=== PATIENT | male | born 1985 | race Caucasian/White ===

== ENCOUNTER 2019-05-30 08:23 | Inpatient (IN) | payer SELFPAY ==
[2019-05-30 09:16] VITALS: BMI 27.7
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
[2019-05-30] MEDS ORDERED: MELATONIN 5 MG TABLETS PO PRN (09:52)
[2019-05-30] MEDS ORDERED: MAGNESIUM CITRATE 300 ML BOTTLE PO PRN (09:52)
[2019-05-30] MEDS ORDERED: METHOCARBAMOL 500 MG TABLET PO PRN (09:52)
[2019-05-30] MEDS ORDERED: cloNIDine HCL 0.1 MG TABLET PO PRN (09:52)
[2019-05-30] MEDS ORDERED: ACETAMINOPHEN 325 MG TABLET (FP) PO PRN ×2 (09:52)
[2019-05-30] MEDS ORDERED: MAG HYDROX/AL HYDROX/SIMETH 30 ML UNIT-DOSE CUP PO PRN (09:52)
[2019-05-30] MEDS ORDERED: IBUPROFEN 400 MG TABLET (FP) PO PRN (09:52)
[2019-05-30] MEDS ORDERED: MENTHOL/PHENOL 1 EACH UD MM PRN (09:52)
[2019-05-30] MEDS ORDERED: BISMUTH SUBSALICYLATE 262 MG/15 ML BTL PO PRN (09:52)
[2019-05-30] MEDS ORDERED: MAGNESIUM HYDROX 2400MG/30ML ORAL SUSPENSION 30 ML CUP PO PRN (09:52)
[2019-05-30] MEDS ORDERED: hydrOXYzine PAMOATE 25 MG CAPSULE (FP) PO PRN (09:52)
[2019-05-30] MEDS ORDERED: METHADONE HCL 10 MG TABLET (FOR DETOX USE ONLY) PO ONE (10:30)
[2019-05-30] MEDS: PRENATAL VITAMINS W/ FOLIC ACID TABLET (FP) PO SCH (11:04)
[2019-05-30] MEDS: LORazepam 2 MG TABLET PO SCH ×3 (11:05→22:12)
[2019-05-30] MEDS: NICOTINE 14 MG/24 HOURS TOPICAL PATCH TD SCH (11:06)
[2019-05-30 15:09] LABS: HEMATOCRIT 37.2 % (35.4-49); HEMOGLOBIN 12.2 GM/dL (11.7-16.9); MCH 29.2 pg (25.7-33.7); MCHC 32.9 g/dl (32.0-35.9); MEAN CELL VOLUME 88.8 fl (80-96); MEAN PLT VOLUME 7.7 fl (7.5-11.1); PLATELET COUNT 350 K/MM3 (134-434); RBC 4.18 M/mm3 (4.00-5.60); RDW 13.8 % (11.9-15.9); WHITE BLOOD COUNT 6.8 K/mm3 (4.0-10.0)
[2019-05-30 15:21] LABS: ALBUMIN 4.1 g/dl (3.4-5.0); BILIRUBIN,TOTAL 0.2 mg/dL (0.2-1); BLOOD UREA NITROGEN 17.6 mg/dL (7-18); CALCIUM 9.3 mg/dL (8.5-10.1); POTASSIUM 4.7 mmol/L (3.5-5.1)
--- NOTE | 2019-05-30 16:29 | CONSULT ---
[facility] Psychiatric Consult - Data Date of interview: 05/30/19 Admission source: [facility] Identifying data: First admission to [facility] for this 33 y/o male from [place] descent, self-referred for detoxification (LAQUITA isssues : heroin, cocaine, nicotine). Interviewed at [address] [place] [address]. Patient is single, no dependents, domiciled (lives with father), unemployed and supported on his personal savings (employer went bankrupt). Substance Abuse History: Discussed with patient. Details in current [facility] report as follows : Smoking history: Current every day smoker. Have you smoked in the past 12 months: Yes. Aproximately how many cigarettes per day: 10. Alcohol/ Substance Use. Hx Alcohol Use: Yes (6-12 pack beers daily). Smoking history: Current every day smoker. Have you smoked in the past 12 months: Yes. Aproximately how many cigarettes per day: 12. Hx Chewing Tobacco Use: No. Initiated information on smoking cessation: Yes. 'Breaking Loose' booklet given : 05/30/19. - Substance & Tx. History. Hx Alcohol Use: Yes (6-12 pack of beer) . Hx Substance Use: Yes. Substance Use Type: Alcohol, Cocaine, Heroin, Opiates. Hx Substance Use Treatment: Yes (prior rehab). - Substances abused. Other. Other (specify): Fentanyl. Substance route: Injection. Frequency: Daily. Amount used: 2 grams. Age of first use: 33. Date of last use: . Cocaine. Substance route: Injection. Frequency: 3-6 times per week. Amount used: half to 1 gram. Age of first use: 15. Date of last use: . Alprazolam (Xanax). Substance route: Oral. Frequency: 1-2 times per week. Amount used: 4 to 6 mg. Age of first use: 15. Date of last use: . Number of Drinks Daily: 12. History of Substance Use: reports: Cocaine, Heroin. Date of Last Use: 05/29/19 Medical History: Patient endorses good general health. Psychiatric History: Patient denies history of psychiatric hospitalizations, OPD care of suicide attempts. Physical/Sexual Abuse/Trauma History: Patient denies. Additional Comment: Urine drug screen results: BRITTANEY-Cocaine, FEN-Fentanyl, MOP- Opiates. Noted. Mental Status Exam - Mental Status Exam Alert and Oriented to: Time, Place, Person Cognitive Function: Good Patient Appearance: Well Groomed (tall stature) Mood: Hopeful, Euthymic Affect: Appropriate, Normal Range Patient Behavior: Fatigued, Appropriate, Cooperative Speech Pattern: Clear Voice Loudness: Normal Thought Process: Intact, Goal Oriented Thought Disorder: Not Present Hallucinations: Denies Suicidal Ideation: Denies Homicidal Ideation: Denies Insight/Judgement: Poor Sleep: Poorly, Difficulty falling asleep Appetite: Good Muscle strength/Tone: Normal Gait/Station: Normal Psychiatric Findings - Problem List ([place] 1, 2,3) (1) Alcohol dependence with withdrawal Current Visit: Yes Status: Acute (2) Opioid dependence with withdrawal Current Visit: Yes Status: Acute (3) Cocaine use disorder Current Visit: Yes Status: Chronic (4) Nicotine dependence Current Visit: Yes Status: Chronic (5) Insomnia Current Visit: Yes Status: Chronic - Initial Treatment Plan Initial Treatment Plan: Psychoeducation. Sleep hygiene. Detoxification. AA/NA meetings. Support. MAT services : discussed with patient. Insomnia is addressed with suvorexant 10 mg po hs prn. Side effects/benefits discussed in session. Patient gave verbal consent to Observation.
[2019-05-30] MEDS: SUVOREXANT 10 MG TABLET PO PRN (22:12)
[2019-05-30] MEDS: THIAMINE HCL 100 MG TABLET (FP) PO SCH (22:12)
[2019-05-31] MEDS: LORazepam 2 MG TABLET PO SCH ×4 (05:49→22:32)
[2019-05-31] MEDS ORDERED: METHADONE HCL 5 MG TABLET (FOR DETOX USE ONLY) ONE (08:29)
[2019-05-31] MEDS ORDERED: METHADONE HCL 10 MG TABLET (FOR DETOX USE ONLY) ONE (08:29)
[2019-05-31] MEDS ORDERED: METHADONE (DETOX) 20 MG, METHADONE (DETOX) 5 MG PO ONE (10:00)
[2019-05-31] MEDS: NICOTINE 14 MG/24 HOURS TOPICAL PATCH TD SCH (10:11)
[2019-05-31] MEDS: PRENATAL VITAMINS W/ FOLIC ACID TABLET (FP) PO SCH (10:11)
--- NOTE | 2019-05-31 10:59 | PN ---
S CIWA - CIWA Score Nausea/Vomitin-Mild Nausea/No Vomiting Muscle Tremors: 2 Anxiety: 4-Mod. Anxious/Guarded Agitation: 2 Paroxysmal Sweats: 2 Orientation: 0-Oriented Tacttile Disturbances: 1-Very Mild Itch/Numbness Auditory Disturbances: 0-None Visual Disturbances: 0-None Headache: 0-None Present CIWA-Ar Total Score: 12 BHS COWS - Scale Resting Pulse: 1= [place] 81-100 Sweatin= Chills/Flushing Restless Observation: 0= Sits Still Pupil Size: 1= Pupils >than Normal Bone or Joint Aches: 1= Mild Discomfort Runny Nose/ Eye Tearin= None GI Upset > 30mins: 2= Nausea/Diarrhea Tremor Observation of Outstretched Hands: 0= None Yawning Observation: 2= >3x During Session Anxiety or Irritability: 1=Feels Anxious/Irritable Goose Flesh Skin: 3=Piloerection COWS Score: 12 S Progress Note (SOAP) Subjective: 33 years old male admitted on 05/30/19 for benzo and opiate withdrawal sx management treated with ativan and methadone detox regimen feeling tired prefers to stay in bed limited conversation with staff Objective: 05/31/19 10:58 Vital Signs Temperature 97.7 F 05/31/19 09:10 Pulse Rate 82 05/31/19 09:10 Respiratory Rate 18 05/31/19 09:10 Blood Pressure 126/73 05/31/19 09:10 O2 Sat by Pulse Oximetry (%) Laboratory Last Values WBC 6.8 K/mm3 (4.0-10.0) 05/30/19 10:10 RBC 4.18 M/mm3 (4.00-5.60) 05/30/19 10:10 Hgb 12.2 GM/dL (11.7-16.9) 05/30/19 10:10 Hct 37.2 % (35.4-49) 05/30/19 10:10 MCV 88.8 fl (80-96) 05/30/19 10:10 MCH 29.2 pg (25.7-33.7) 05/30/19 10:10 MCHC 32.9 g/dl (32.0-35.9) 05/30/19 10:10 RDW 13.8 % (11.9-15.9) 05/30/19 10:10 Plt Count 350 K/MM3 (134-434) 05/30/19 10:10 MPV 7.7 fl (7.5-11.1) 05/30/19 10:10 Sodium 136 mmol/L (136-145) 05/30/19 10:10 Potassium 4.7 mmol/L (3.5-5.1) 05/30/19 10:10 Chloride 103 mmol/L (98-107) 05/30/19 10:10 Carbon Dioxide 32 mmol/L (21-32) 05/30/19 10:10 Anion Gap 1 MMOL/L (8-16) L 05/30/19 10:10 BUN 17.6 mg/dL (7-18) 05/30/19 10:10 Creatinine 1.0 mg/dL (0.55-1.3) 05/30/19 10:10 Est GFR (CKD-EPI)AfAm 114.11 05/30/19 10:10 Est GFR (CKD-EPI)NonAf 98.45 05/30/19 10:10 Random Glucose 94 mg/dL (74-106) 05/30/19 10:10 Calcium 9.3 mg/dL (8.5-10.1) 05/30/19 10:10 Total Bilirubin 0.2 mg/dL (0.2-1) 05/30/19 10:10 AST 11 U/L (15-37) L 05/30/19 10:10 ALT 20 U/L (13-61) 05/30/19 10:10 Alkaline Phosphatase 88 U/L (45-117) 05/30/19 10:10 Total Protein 8.0 g/dl (6.4-8.2) 05/30/19 10:10 Albumin 4.1 g/dl (3.4-5.0) 05/30/19 10:10 HIV 1&2 Antibody Screen Cancelled 05/30/19 10:10 HIV P24 Antigen Cancelled 05/30/19 10:10 lab noted Assessment: 05/31/19 10:59 benzo and opiate withdrawal sx Plan: continue ativan and methadone detox regimen
[2019-05-31] MEDS: LORazepam 1 MG TABLET PO PRN (12:37)
[2019-05-31] MEDS: SUVOREXANT 10 MG TABLET PO PRN (22:32)
[2019-05-31] MEDS: THIAMINE HCL 100 MG TABLET (FP) PO SCH (22:32)
[2019-06-01] MEDS: LORazepam 1 MG TABLET PO SCH ×2 (05:28→10:14)
[2019-06-01] MEDS ORDERED: METHADONE HCL 10 MG TABLET (FOR DETOX USE ONLY) PO ONE (10:00)
[2019-06-01] MEDS: PRENATAL VITAMINS W/ FOLIC ACID TABLET (FP) PO SCH (10:14)
[2019-06-01] MEDS: NICOTINE 14 MG/24 HOURS TOPICAL PATCH TD SCH (10:14)
[2019-06-01 12:45] VITALS: BP 124/78; PULSE 96; TEMP 98.6
[2019-06-01] MEDS: LORazepam 1 MG TABLET PO PRN (13:35)
--- NOTE | 2019-06-01 15:18 | PN ---
S CIWA - CIWA Score Nausea/Vomitin Muscle Tremors: 2 Anxiety: 1-Mildly Anxious Agitation: 1-Slight > Activity Paroxysmal Sweats: 3 Orientation: 0-Oriented Tacttile Disturbances: 2-Mild Itch/Numbness/Burn Auditory Disturbances: 0-None Visual Disturbances: 0-None Headache: 0-None Present CIWA-Ar Total Score: 11 BHS COWS - Scale Resting Pulse: 2= DC 101-120 Sweatin=Flushed/Facial Moisture Restless Observation: 1= Difficult to Sit Still Pupil Size: 1= Pupils >than Normal Bone or Joint Aches: 2= Severe Diffuse Aches Runny Nose/ Eye Tearin= Nasal Congestion GI Upset > 30mins: 2= Nausea/Diarrhea Tremor Observation of Outstretched Hands: 1= Tremor [place], Not Seen Yawning Observation: 0= None Anxiety or Irritability: 1=Feels Anxious/Irritable Goose Flesh Skin: 0=Smooth Skin COWS Score: 13 BHS Progress Note (SOAP) Subjective: interrupted sleep, sweats, shakes , nausea, vomiting , bodyaches Objective: 06/01/19 15:15 Vital Signs Temperature 98.6 F 06/01/19 12:44 Pulse Rate 96 H 06/01/19 12:44 Respiratory Rate 18 06/01/19 12:44 Blood Pressure 124/78 06/01/19 12:44 O2 Sat by Pulse Oximetry (%) Laboratory Tests 05/30/19 05/30/19 05/30/19 10:10 10:10 10:10 WBC 6.8 RBC 4.18 Hgb 12.2 Hct 37.2 MCV 88.8 MCH 29.2 MCHC 32.9 RDW 13.8 Plt Count 350 MPV 7.7 Sodium 136 Potassium 4.7 Chloride 103 Carbon Dioxide 32 Anion Gap 1 L BUN 17.6 Creatinine 1.0 Est GFR (CKD-EPI)AfAm 114.11 Est GFR (CKD-EPI)NonAf 98.45 Random Glucose 94 Calcium 9.3 Total Bilirubin 0.2 AST 11 L ALT 20 Alkaline Phosphatase 88 Total Protein 8.0 Albumin 4.1 RPR Titer Nonreactive HIV 1&2 Ag/Ab, 4th Gen HIV 1&2 Antibody Screen HIV P24 Antigen 05/30/19 05/30/19 10:10 10:10 WBC RBC Hgb Hct MCV MCH MCHC RDW Plt Count MPV Sodium Potassium Chloride Carbon Dioxide Anion Gap BUN Creatinine Est GFR (CKD-EPI)AfAm Est GFR (CKD-EPI)NonAf Random Glucose Calcium Total Bilirubin AST ALT Alkaline Phosphatase Total Protein Albumin RPR Titer HIV 1&2 Ag/Ab, 4th Gen Non reactive HIV 1&2 Antibody Screen Cancelled HIV P24 Antigen Cancelled pt aox3 lying in bed appeating uncomfortable Assessment: 06/01/19 15:16 withdrawal sx's Plan: cont. detox increase fluids motrin prn
[2019-06-02] MEDS ORDERED: LORazepam 0.5 MG TABLET PO PRN
--- NOTE | 2019-06-02 01:15 | DS ---
[facility] Detox Discharge Summary Admission Date: 05/30/19 Discharge Date: 06/01/19 - History Present History: Alcohol Dependence, Cocaine Dependence, Opioid Dependence - Physical Exam Results Vital Signs: Vital Signs Temperature 98.6 F 06/01/19 12:44 Pulse Rate 96 H 06/01/19 12:44 Respiratory Rate 18 06/01/19 12:44 Blood Pressure 124/78 06/01/19 12:44 O2 Sat by Pulse Oximetry (%) Pertinent Admission Physical Exam Findings: ADMITTED W/ ALCOHOL AND OPIOID WITHDRAWAL SEEKING DETOX. Laboratory Last Values WBC 6.8 K/mm3 (4.0-10.0) 05/30/19 10:10 RBC 4.18 M/mm3 (4.00-5.60) 05/30/19 10:10 Hgb 12.2 GM/dL (11.7-16.9) 05/30/19 10:10 Hct 37.2 % (35.4-49) 05/30/19 10:10 MCV 88.8 fl (80-96) 05/30/19 10:10 MCH 29.2 pg (25.7-33.7) 05/30/19 10:10 MCHC 32.9 g/dl (32.0-35.9) 05/30/19 10:10 RDW 13.8 % (11.9-15.9) 05/30/19 10:10 Plt Count 350 K/MM3 (134-434) 05/30/19 10:10 MPV 7.7 fl (7.5-11.1) 05/30/19 10:10 Sodium 136 mmol/L (136-145) 05/30/19 10:10 Potassium 4.7 mmol/L (3.5-5.1) 05/30/19 10:10 Chloride 103 mmol/L (98-107) 05/30/19 10:10 Carbon Dioxide 32 mmol/L (21-32) 05/30/19 10:10 Anion Gap 1 MMOL/L (8-16) L 05/30/19 10:10 BUN 17.6 mg/dL (7-18) 05/30/19 10:10 Creatinine 1.0 mg/dL (0.55-1.3) 05/30/19 10:10 Est GFR (CKD-EPI)AfAm 114.11 05/30/19 10:10 Est GFR (CKD-EPI)NonAf 98.45 05/30/19 10:10 Random Glucose 94 mg/dL (74-106) 05/30/19 10:10 Calcium 9.3 mg/dL (8.5-10.1) 05/30/19 10:10 Total Bilirubin 0.2 mg/dL (0.2-1) 05/30/19 10:10 AST 11 U/L (15-37) L 05/30/19 10:10 ALT 20 U/L (13-61) 05/30/19 10:10 Alkaline Phosphatase 88 U/L (45-117) 05/30/19 10:10 Total Protein 8.0 g/dl (6.4-8.2) 05/30/19 10:10 Albumin 4.1 g/dl (3.4-5.0) 05/30/19 10:10 RPR Titer Nonreactive (NONREACTIVE) 05/30/19 10:10 HIV 1&2 Ag/Ab, 4th Gen Non reactive (Non Reactive) 05/30/19 10:10 HIV 1&2 Antibody Screen Cancelled 05/30/19 10:10 HIV P24 Antigen Cancelled 05/30/19 10:10 LABS REVIEWED - Treatment Hospital Course: Detox Protocol Followed (DID NOT COMPLETE DISCHARGE), Discharged Condition Good (PATIENT LEFT W/O SEEING PROVIDER) - Medication Discharge Medications: Ambulatory Orders Naloxone HCl [Narcan] 4 mg NS ASDIR PRN #1 spray 05/31/19 - Diagnosis (1) Alcohol dependence with withdrawal Status: Acute Qualifiers: Complication of substance-induced condition: uncomplicated Qualified Code(s ): F10.230 - Alcohol dependence with withdrawal, uncomplicated (2) Opioid dependence with withdrawal Status: Acute (3) Cocaine use disorder Status: Chronic (4) Insomnia Status: Chronic Qualifiers: Insomnia type: unspecified Qualified Code(s): G47.00 - Insomnia, unspecified (5) Nicotine dependence Status: Chronic Qualifiers: Nicotine product type: cigarettes Substance use status: uncomplicated Qualified Code(s): F17.210 - Nicotine dependence, cigarettes, uncomplicated - AMA Did Patient Leave Against Medical Advice: Yes
[2019-06-02] MEDS ORDERED: LORazepam 0.5 MG TABLET PO SCH (05:00)
[2019-06-02] MEDS ORDERED: METHADONE (DETOX) 10 MG, METHADONE (DETOX) 5 MG PO ONE (10:00)
[2019-06-03] MEDS ORDERED: LORazepam 0.5 MG TABLET PO ONE (05:00)
[2019-06-03] MEDS ORDERED: METHADONE HCL 10 MG TABLET (FOR DETOX USE ONLY) PO ONE (10:00)
[2019-06-04] MEDS ORDERED: METHADONE HCL 5 MG TABLET (FOR DETOX USE ONLY) PO ONE (06:00)
== END 2019-06-01 16:40 | disposition left against medical advice (07) | DRG 770 ==
LOC: YASAS 08:23 → Y3N 10:04
PROVIDERS: ADMIT Allergy & Immunology; ATTEND Allergy & Immunology
PROC: HZ2ZZZZ Detoxification Services for Substance Abuse Treatment (ICD-10-PCS; principal; 2019-05-30)
DX: F10.230 Alcohol dependence with withdrawal, uncomplicated (principal); F11.23 Opioid dependence with withdrawal; F13.20 Sedative, hypnotic or anxiolytic dependence, uncomplicated; F14.20 Cocaine dependence, uncomplicated; F17.210 Nicotine dependence, cigarettes, uncomplicated; F43.10 Post-traumatic stress disorder, unspecified; G47.00 Insomnia, unspecified
CPT/HCPCS: 36415; 80053; 85027; 86593; 87389